=== PATIENT | male | born 1970 | race Caucasian/White ===

== ENCOUNTER → 2024-10-06 18:40 | Outpatient (REF) | payer BC, SELFPAY | LOC: RAD 18:40 | PROVIDERS: ATTENDING PHYSICIAN Internal Medicine | DX: M48.062 Spinal stenosis, lumbar region with neurogenic claudication (principal) | CPT/HCPCS: 72110 ==

== ENCOUNTER → 2024-12-12 07:38 | Outpatient (REF) | payer BC, SELFPAY | LOC: MRI 3T 07:38 | PROVIDERS: ATTENDING PHYSICIAN Physician Assistant Surgical; FAMILY PHYSICIAN Internal Medicine | DX: M54.16 Radiculopathy, lumbar region (principal); M54.59 Other low back pain; M51.361 Other intervertebral disc degeneration, lumbar region with lower extremity pain only | CPT/HCPCS: 72148 ==